=== PATIENT | male | born 1980 | race Caucasian/White ===

== ENCOUNTER 2018-03-28 03:40 | Emergency (ER) | payer OTHER ==
[~2018-03-28] VITALS: Ht 185.4 cm; Wt 93.0 kg
[~2018-03-28 03:40] MED LIST: AMOXICILLIN875 MG PO; AUGMENTIN 875875 M1 PO; BACTRIM DS TAB1 EACH PO; BYSTOLIC 5 MG5 M1 PO; CLONAZEPAM PO; EFFEXOR XR37.5 MG PO; EFFEXOR75 MG PO; FLONASE 0.05%50 MCG NASAL; KLONOPIN0.5 MG PO; NEO-POLYMYXIN-H10 ML OT; NORCO 5-325 TA1 EACH PO; PREDNISONE 20 M20 MG PO; SSD CREAM 1% 5050 G1 TOP; TESSALON PERLE100 M1 PO; VENTOLIN HFA 1818 GM INH; ZYRTEC10 M5 PO
[2018-03-28 03:45] VITALS: BP 120/80
[2018-03-28] MEDS ORDERED: FLEXERIL PO (04:13)
[2018-03-28] MEDS ORDERED: MEDROLDOSEPACK PO (04:13)
[2018-03-28] MEDS ORDERED: LIORESAL 10 MG10 MG PO (04:13)
[2018-03-28] MEDS ORDERED: IBUPROFEN 800800 MG PO (04:13)
== END 2018-03-28 04:20 | disposition home or self-care (01) ==
LOC: M.ERS 03:40
DX: M54.16 Radiculopathy, lumbar region (principal); I10 Essential (primary) hypertension; F32.9 Major depressive disorder, single episode, unspecified; Z88.1 Allergy status to other antibiotic agents